=== PATIENT | male | born 1995 | race Hispanic/Latino ===

== ENCOUNTER 2022-07-16 15:21 | Emergency (ER) | payer SELFPAY ==
[2022-07-16 15:21] VITALS: BP 157/92
[2022-07-16] MEDS ORDERED: DOXYCYCLINE HYCLATE 100MG TABLET PO ONE (17:00)
[2022-07-16] MEDS ORDERED: DOXY-443 PO (17:01)
== END 2022-07-16 17:28 | disposition home or self-care (01) ==
LOC: M ED 15:21
DX: H00.034 Abscess of left upper eyelid (principal); Z88.0 Allergy status to penicillin